=== PATIENT | female | born 1955 | race Caucasian/White ===

== ENCOUNTER 2018-12-12 17:14 | Inpatient (IN) | payer OTHER ==
[~2018-12-12] VITALS: Ht 154.9 cm; Wt 64.0 kg
[2018-12-12 17:15] VITALS: BP_SYST 163
[2018-12-12] MEDS ORDERED: NACL 0.9% 1,000 ML IV ONE (19:50)
[2018-12-12] MEDS ORDERED: METOCLOPRAMIDE HCL 10 MG/2 ML VIAL IVP ONE (20:00)
[2018-12-12] MEDS ORDERED: DIPHENHYDRAMINE INJ 50 MG/ML VIAL IVP ONE (20:00)
[2018-12-12] MEDS ORDERED: MORPHINE 4 MG/ML INJ. SYRINGE IVP ONE (20:00)
[2018-12-12 20:35] LABS: BASOPHILS % (AUTO) 0.3 % (0.0-2.0); EOSINOPHILS % (AUTO) 0.1 % (0.0-4.0); HEMATOCRIT 43.1 % (36-48); HEMOGLOBIN 14.8 g/dL (12.0-16.0); LYMPHOCYTES # (AUTO) 0.9 K/uL (1.0-5.5); LYMPHOCYTES % (AUTO) 14.7 % (20.5-51.5); MEAN CORPUSCULAR HEMOGLOBIN 30 pg (27-31); MEAN CORPUSCULAR HGB CONC 34 % (32-36); MEAN CORPUSCULAR VOLUME 87 fL (79.0-98.0); MONOCYTES # (AUTO) 0.3 K/uL (0.0-1.0); MONOCYTES % (AUTO) 5.3 % (1.7-9.3); NEUTROPHILS # (AUTO) 4.6 K/uL (1.8-7.7); NEUTROPHILS % (AUTO) 79.6 % (40.0-70.0); PLATELET COUNT (AUTO) 155 K/uL (130-430); RED BLOOD CELL COUNT(AUTO) 4.94 MIL/uL (4.2-6.2); RED CELL DISTRIBUTION WIDTH 13.9 % (9.0-15.0); WHITE BLOOD COUNT (AUTO) 5.8 K/uL (4.8-10.8)
[2018-12-12 20:58] LABS: INR 1.1 (0.8-1.2)
[2018-12-12 21:07] LABS: CALCIUM 9.7 mg/dL (8.4-11.0); CREATININE 0.93 mg/dL (0.55-1.30); POTASSIUM 4.3 mmol/L (3.5-5.1)
[2018-12-12 21:11] LABS: ALBUMIN 3.3 g/dL (3.4-4.8); TOTAL BILIRUBIN 1.7 mg/dL (0.0-1.0)
[2018-12-12] MEDS ORDERED: CYCL-10 PO (22:14)
[2018-12-12] MEDS ORDERED: VERA180T11 PO (22:14)
[2018-12-12] MEDS ORDERED: GABA-531 PO (22:14)
[2018-12-12] MEDS ORDERED: HYDR-4038 PO (22:14)
[2018-12-12] MEDS ORDERED: MECL12.584 PO (22:14)
[2018-12-12] MEDS ORDERED: METO25TA3 PO (22:14)
[2018-12-12] MEDS ORDERED: CLOP75TA32 PO (22:14)
[2018-12-12] MEDS ORDERED: SPIR50TA PO (22:14)
[2018-12-12] MEDS ORDERED: LISI40TA4 PO (22:14)
[2018-12-12] MEDS ORDERED: LIP40 PO (22:14)
[2018-12-12] MEDS ORDERED: ONDA4TAB5 PO (22:14)
[2018-12-12] MEDS ORDERED: GLU500 PO (22:14)
[2018-12-12] MEDS ORDERED: ASA81 PO (22:14)
[2018-12-12] MEDS: NACL 0.9% 1,000 ML IV SCH (23:20)
[2018-12-12] MEDS ORDERED: ALBUTEROL SULFATE 0.083% 2.5 MG/3 ML VIAL.NEB INH PRN (23:30)
[2018-12-12] MEDS ORDERED: ACETAMINOPHEN 325 MG TABLET PO PRN (23:30)
[2018-12-12] MEDS ORDERED: LABETALOL 100 MG/ 20ML VIAL IVP PRN (23:45)
[2018-12-12] MEDS ORDERED: MECLIZINE HCL 25 MG TABLET (ANITVERT) PO SCH (23:45)
[2018-12-12 23:53] VITALS: BP_SYST 153
[2018-12-13] VITALS (7 sets, daily range): BP systolic 144–172
[2018-12-13 06:05] LABS: ALBUMIN 2.7 g/dL (3.4-4.8); CALCIUM 8.9 mg/dL (8.4-11.0); CREATININE 0.77 mg/dL (0.55-1.30); POTASSIUM 3.5 mmol/L (3.5-5.1); TOTAL BILIRUBIN 1.3 mg/dL (0.0-1.0)
[2018-12-13 06:12] LABS: BASOPHILS % (AUTO) 0.4 % (0.0-2.0); EOSINOPHILS % (AUTO) 0.5 % (0.0-4.0); HEMATOCRIT 37.4 % (36-48); LYMPHOCYTES # (AUTO) 1.4 K/uL (1.0-5.5); LYMPHOCYTES % (AUTO) 26.9 % (20.5-51.5); MEAN CORPUSCULAR HEMOGLOBIN 30 pg (27-31); MEAN CORPUSCULAR HGB CONC 35 % (32-36); MEAN CORPUSCULAR VOLUME 86 fL (79.0-98.0); MONOCYTES # (AUTO) 0.4 K/uL (0.0-1.0); NEUTROPHILS # (AUTO) 3.5 K/uL (1.8-7.7); NEUTROPHILS % (AUTO) 65.2 % (40.0-70.0); PLATELET COUNT (AUTO) 136 K/uL (130-430); RED BLOOD CELL COUNT(AUTO) 4.35 MIL/uL (4.2-6.2); RED CELL DISTRIBUTION WIDTH 14.2 % (9.0-15.0); WHITE BLOOD COUNT (AUTO) 5.3 K/uL (4.8-10.8)
[2018-12-13] MEDS: ONDANSETRON HCL 4 MG/2 ML VIAL IVP PRN ×2 (06:47→21:59)
[2018-12-13] MEDS: CLOPIDOGREL BISULFATE 75 MG TABLET PO SCH (09:51)
[2018-12-13] MEDS: VERAPAMIL HCL 180 MG TABLET.SA PO SCH ×2 (09:51→21:24)
[2018-12-13] MEDS: ASPIRIN 81 MG TAB.CHEW PO SCH (09:52)
[2018-12-13] MEDS: CYCLOBENZAPRINE HCL 10 MG TABLET (FLEXERIL) PO SCH ×2 (09:53→21:17)
[2018-12-13] MEDS: GABAPENTIN 300 MG CAPSULE PO SCH ×2 (09:53→21:26)
[2018-12-13] MEDS: METOPROLOL SUCCINATE 25 MG TAB.SR.24H (TOPROL XL) PO SCH (09:54)
[2018-12-13] MEDS ORDERED: LORazepam 2 MG/ML VIAL IVP ONE (11:15)
[2018-12-13] MEDS ORDERED: *LOVENOX 1MG/KG Q12H/PHARMACY XX SCH (21:15)
[2018-12-13] MEDS: ATORVASTATIN 20 MG TABLET PO SCH (21:27)
[2018-12-13] MEDS: NACL 0.9% 1,000 ML IV SCH (21:34)
[2018-12-13] MEDS ORDERED: ENOXAPARIN SODIUM 60 MG/0.6 ML SYRINGE SUBCUT SCH (22:00)
[2018-12-14 00:14] VITALS: BP_SYST 148
[2018-12-14] MEDS: NACL 0.9% 1,000 ML IV SCH ×2 (05:20→20:33)
[2018-12-14] MEDS: ASPIRIN 81 MG TAB.CHEW PO SCH (09:06)
[2018-12-14] MEDS: VERAPAMIL HCL 180 MG TABLET.SA PO SCH ×2 (09:07→20:36)
[2018-12-14] MEDS: GABAPENTIN 300 MG CAPSULE PO SCH ×2 (09:08→20:33)
[2018-12-14] MEDS: CYCLOBENZAPRINE HCL 10 MG TABLET (FLEXERIL) PO SCH ×2 (09:08→20:35)
[2018-12-14] MEDS: CLOPIDOGREL BISULFATE 75 MG TABLET PO SCH (09:08)
[2018-12-14] MEDS: ENOXAPARIN SODIUM 60 MG/0.6 ML SYRINGE SUBCUT SCH ×2 (09:13→20:39)
[2018-12-14] MEDS: METOPROLOL SUCCINATE 25 MG TAB.SR.24H (TOPROL XL) PO SCH (09:13)
[2018-12-14 12:26] VITALS: BP_SYST 163
[2018-12-14 13:14] VITALS: BP_SYST 146
[2018-12-14 17:30] VITALS: BP_SYST 139
[2018-12-14 19:40] VITALS: BP_SYST 177
[2018-12-14] MEDS: ATORVASTATIN 20 MG TABLET PO SCH (20:35)
[2018-12-15 00:19] VITALS: BP_SYST 139
[2018-12-15 07:51] VITALS: BP_SYST 162
[2018-12-15] MEDS: METOPROLOL SUCCINATE 25 MG TAB.SR.24H (TOPROL XL) PO SCH (09:00)
[2018-12-15] MEDS: ENALAPRILAT DIHYDRATE 1.25 MG/ML VIAL IVP PRN (09:22)
[2018-12-15] MEDS: VERAPAMIL HCL 180 MG TABLET.SA PO SCH ×2 (09:25→21:38)
[2018-12-15] MEDS: CLOPIDOGREL BISULFATE 75 MG TABLET PO SCH (09:26)
[2018-12-15] MEDS: ASPIRIN 81 MG TAB.CHEW PO SCH (09:26)
[2018-12-15] MEDS: CYCLOBENZAPRINE HCL 10 MG TABLET (FLEXERIL) PO SCH ×2 (09:26→21:38)
[2018-12-15] MEDS: GABAPENTIN 300 MG CAPSULE PO SCH ×2 (09:27→21:00)
[2018-12-15] MEDS: ENOXAPARIN SODIUM 60 MG/0.6 ML SYRINGE SUBCUT SCH ×2 (09:32→21:43)
[2018-12-15] MEDS: INSULIN REGULAR, HUMAN 100 UNITS/ML, 10 ML VIAL (humuLIN R) SUBCUT PRN ×2 (11:55→12:35)
[2018-12-15 12:00] VITALS: BP_SYST 148
[2018-12-15 15:56] VITALS: BP_SYST 151
[2018-12-15] MEDS: NACL 0.9% 1,000 ML IV SCH (16:29)
[2018-12-15] MEDS: ONDANSETRON HCL 4 MG/2 ML VIAL IVP PRN (16:51)
[2018-12-15 19:40] VITALS: BP_SYST 160
[2018-12-15] MEDS: ATORVASTATIN 20 MG TABLET PO SCH (21:39)
[2018-12-16 00:34] VITALS: BP_SYST 156
[2018-12-16 08:30] VITALS: BP_SYST 136; BP_SYST 162
[2018-12-16] MEDS: VERAPAMIL HCL 180 MG TABLET.SA PO SCH ×2 (08:34→22:20)
[2018-12-16] MEDS: CLOPIDOGREL BISULFATE 75 MG TABLET PO SCH (08:34)
[2018-12-16] MEDS: GABAPENTIN 300 MG CAPSULE PO SCH ×2 (08:34→22:15)
[2018-12-16] MEDS: CYCLOBENZAPRINE HCL 10 MG TABLET (FLEXERIL) PO SCH ×2 (08:35→22:15)
[2018-12-16] MEDS: FLUoxetine HCL 20 MG CAPSULE (PROzac) PO SCH (08:35)
[2018-12-16] MEDS: METOPROLOL SUCCINATE 25 MG TAB.SR.24H (TOPROL XL) PO SCH (08:35)
[2018-12-16] MEDS: ASPIRIN 81 MG TAB.CHEW PO SCH (08:35)
[2018-12-16] MEDS: ENOXAPARIN SODIUM 60 MG/0.6 ML SYRINGE SUBCUT SCH ×2 (08:37→22:25)
[2018-12-16 12:27] VITALS: BP_SYST 142
[2018-12-16] MEDS: NACL 0.9% 1,000 ML IV SCH (12:33)
[2018-12-16] MEDS ORDERED: LISINOPRIL 20 MG TABLET PO ONE (12:45)
[2018-12-16] MEDS: ONDANSETRON HCL 4 MG/2 ML VIAL IVP PRN (12:52)
[2018-12-16 15:48] VITALS: BP_SYST 142
[2018-12-16] MEDS: ENALAPRILAT DIHYDRATE 1.25 MG/ML VIAL IVP PRN ×2 (16:38→23:39)
[2018-12-16 17:00] VITALS: BP_SYST 160
[2018-12-16 20:00] VITALS: BP_SYST 165
[2018-12-16] MEDS: ATORVASTATIN 20 MG TABLET PO SCH (22:16)
[2018-12-17] VITALS (7 sets, daily range): BP systolic 136–197
[2018-12-17] MEDS: NACL 0.9% 1,000 ML IV SCH (06:30)
[2018-12-17] MEDS: ENALAPRILAT DIHYDRATE 1.25 MG/ML VIAL IVP PRN ×3 (06:40→22:01)
[2018-12-17] MEDS: ASPIRIN 81 MG TAB.CHEW PO SCH (09:17)
[2018-12-17] MEDS: VERAPAMIL HCL 180 MG TABLET.SA PO SCH ×2 (09:22→21:56)
[2018-12-17] MEDS: CLOPIDOGREL BISULFATE 75 MG TABLET PO SCH (09:23)
[2018-12-17] MEDS: GABAPENTIN 300 MG CAPSULE PO SCH ×2 (09:24→21:56)
[2018-12-17] MEDS: FLUoxetine HCL 20 MG CAPSULE (PROzac) PO SCH (09:25)
[2018-12-17] MEDS: CYCLOBENZAPRINE HCL 10 MG TABLET (FLEXERIL) PO SCH ×2 (09:27→21:55)
[2018-12-17] MEDS: LISINOPRIL 20 MG TABLET PO SCH (09:28)
[2018-12-17] MEDS: METOPROLOL SUCCINATE 25 MG TAB.SR.24H (TOPROL XL) PO SCH (09:29)
[2018-12-17] MEDS: ENOXAPARIN SODIUM 60 MG/0.6 ML SYRINGE SUBCUT SCH ×2 (10:05→22:06)
[2018-12-17] MEDS: ONDANSETRON HCL 4 MG/2 ML VIAL IVP PRN (11:34)
[2018-12-17] MEDS: ATORVASTATIN 20 MG TABLET PO SCH (21:55)
[2018-12-18] VITALS (7 sets, daily range): BP systolic 143–186
[2018-12-18] MEDS: NACL 0.9% 1,000 ML IV SCH (03:03)
[2018-12-18] MEDS: GABAPENTIN 300 MG CAPSULE PO SCH ×2 (09:29→21:48)
[2018-12-18] MEDS: FLUoxetine HCL 20 MG CAPSULE (PROzac) PO SCH (09:30)
[2018-12-18] MEDS ORDERED: amLODIPine BESYLATE 5 MG TABLET PO ONE (09:30)
[2018-12-18] MEDS: LISINOPRIL 20 MG TABLET PO SCH (09:30)
[2018-12-18] MEDS: METOPROLOL SUCCINATE 25 MG TAB.SR.24H (TOPROL XL) PO SCH (09:30)
[2018-12-18] MEDS: ASPIRIN 81 MG TAB.CHEW PO SCH (09:30)
[2018-12-18] MEDS: CLOPIDOGREL BISULFATE 75 MG TABLET PO SCH (09:31)
[2018-12-18] MEDS: ENOXAPARIN SODIUM 60 MG/0.6 ML SYRINGE SUBCUT SCH ×2 (09:31→21:51)
[2018-12-18] MEDS: VERAPAMIL HCL 180 MG TABLET.SA PO SCH ×2 (09:31→21:48)
[2018-12-18] MEDS: CYCLOBENZAPRINE HCL 10 MG TABLET (FLEXERIL) PO SCH ×2 (09:32→21:48)
[2018-12-18] MEDS: ATORVASTATIN 20 MG TABLET PO SCH (21:47)
[2018-12-19 00:38] VITALS: BP_SYST 152
[2018-12-19 08:10] VITALS: BP_SYST 135
[2018-12-19] MEDS: ONDANSETRON HCL 4 MG/2 ML VIAL IVP PRN ×2 (08:16→19:21)
[2018-12-19] MEDS: CLOPIDOGREL BISULFATE 75 MG TABLET PO SCH (09:00)
[2018-12-19] MEDS: FLUoxetine HCL 20 MG CAPSULE (PROzac) PO SCH (09:00)
[2018-12-19] MEDS: METOPROLOL SUCCINATE 25 MG TAB.SR.24H (TOPROL XL) PO SCH (09:00)
[2018-12-19] MEDS: amLODIPine BESYLATE 5 MG TABLET PO SCH (09:00)
[2018-12-19] MEDS: VERAPAMIL HCL 180 MG TABLET.SA PO SCH ×2 (09:00→21:04)
[2018-12-19] MEDS: LISINOPRIL 20 MG TABLET PO SCH (09:00)
[2018-12-19] MEDS: GABAPENTIN 300 MG CAPSULE PO SCH ×2 (09:00→21:04)
[2018-12-19] MEDS: ASPIRIN 81 MG TAB.CHEW PO SCH (09:00)
[2018-12-19] MEDS: CYCLOBENZAPRINE HCL 10 MG TABLET (FLEXERIL) PO SCH ×2 (09:00→21:01)
[2018-12-19] MEDS: ENOXAPARIN SODIUM 60 MG/0.6 ML SYRINGE SUBCUT SCH ×2 (09:56→21:08)
[2018-12-19 12:45] VITALS: BP_SYST 129
[2018-12-19 16:30] VITALS: BP_SYST 123
[2018-12-19 17:53] VITALS: BP_SYST 123
[2018-12-19 20:30] VITALS: BP_SYST 168
[2018-12-19] MEDS: ATORVASTATIN 20 MG TABLET PO SCH (21:01)
[2018-12-20 00:10] VITALS: BP_SYST 160
[2018-12-20 08:30] VITALS: BP_SYST 149
[2018-12-20] MEDS: VERAPAMIL HCL 180 MG TABLET.SA PO SCH ×3 (09:00→21:31)
[2018-12-20] MEDS: METOPROLOL SUCCINATE 25 MG TAB.SR.24H (TOPROL XL) PO SCH (09:00)
[2018-12-20] MEDS: ENOXAPARIN SODIUM 60 MG/0.6 ML SYRINGE SUBCUT SCH (09:03)
[2018-12-20] MEDS: GABAPENTIN 300 MG CAPSULE PO SCH ×2 (09:04→21:30)
[2018-12-20] MEDS: CYCLOBENZAPRINE HCL 10 MG TABLET (FLEXERIL) PO SCH ×2 (09:10→21:30)
[2018-12-20] MEDS: amLODIPine BESYLATE 5 MG TABLET PO SCH (09:10)
[2018-12-20] MEDS: FLUoxetine HCL 20 MG CAPSULE (PROzac) PO SCH (09:10)
[2018-12-20] MEDS: LISINOPRIL 20 MG TABLET PO SCH (09:11)
[2018-12-20] MEDS: ASPIRIN 81 MG TAB.CHEW PO SCH (09:12)
[2018-12-20] MEDS ORDERED: HEPARIN SODIUM,PORCINE 3000 UNITS/0.6 ML BOLUS IVP PRN (10:15)
[2018-12-20] MEDS ORDERED: HEPARIN SODIUM,PORCINE 2000 UNITS/0.4 ML BOLUS IVP PRN (10:15)
[2018-12-20 10:50] LABS: BASOPHILS % (AUTO) 0.5 % (0.0-2.0); EOSINOPHILS % (AUTO) 0.6 % (0.0-4.0); HEMATOCRIT 37.5 % (36-48); HEMOGLOBIN 13.3 g/dL (12.0-16.0); LYMPHOCYTES # (AUTO) 1.1 K/uL (1.0-5.5); MEAN CORPUSCULAR HEMOGLOBIN 30 pg (27-31); MEAN CORPUSCULAR HGB CONC 35 % (32-36); MEAN CORPUSCULAR VOLUME 86 fL (79.0-98.0); MONOCYTES # (AUTO) 0.4 K/uL (0.0-1.0); MONOCYTES % (AUTO) 7.6 % (1.7-9.3); NEUTROPHILS # (AUTO) 3.4 K/uL (1.8-7.7); NEUTROPHILS % (AUTO) 68.3 % (40.0-70.0); PLATELET COUNT (AUTO) 113 K/uL (130-430); RED BLOOD CELL COUNT(AUTO) 4.39 MIL/uL (4.2-6.2); RED CELL DISTRIBUTION WIDTH 14.6 % (9.0-15.0); WHITE BLOOD COUNT (AUTO) 4.9 K/uL (4.8-10.8)
[2018-12-20 11:28] VITALS: BP_SYST 140
[2018-12-20] MEDS ORDERED: HEPARIN SODIUM,PORCINE 5000 UNITS/ML VIAL SUBCUT ONE (12:00)
[2018-12-20] MEDS ORDERED: HEPARIN SODIUM,PORCINE 5000 UNITS/ML VIAL IV ONE (12:15)
[2018-12-20] MEDS: HEPARIN 25,000 UNITS/D5W 250ML 250 ML IV PRN ×2 (12:27→21:46)
[2018-12-20 16:30] VITALS: BP_SYST 157
[2018-12-20] MEDS: ONDANSETRON HCL 4 MG/2 ML VIAL IVP PRN (19:45)
[2018-12-20 20:00] VITALS: BP_SYST 167
[2018-12-20] MEDS: ATORVASTATIN 20 MG TABLET PO SCH (21:30)
[2018-12-21 01:42] VITALS: BP_SYST 153
[2018-12-21] MEDS: ONDANSETRON HCL 4 MG/2 ML VIAL IVP PRN (03:15)
[2018-12-21 07:45] VITALS: BP_SYST 135
[2018-12-21] MEDS: GABAPENTIN 300 MG CAPSULE PO SCH ×2 (09:11→20:36)
[2018-12-21] MEDS: FLUoxetine HCL 20 MG CAPSULE (PROzac) PO SCH (09:12)
[2018-12-21] MEDS: ASPIRIN 81 MG TAB.CHEW PO SCH (09:12)
[2018-12-21] MEDS: CYCLOBENZAPRINE HCL 10 MG TABLET (FLEXERIL) PO SCH ×2 (09:12→20:44)
[2018-12-21] MEDS: amLODIPine BESYLATE 5 MG TABLET PO SCH (09:13)
[2018-12-21] MEDS: LISINOPRIL 20 MG TABLET PO SCH (09:13)
[2018-12-21] MEDS: METOPROLOL SUCCINATE 25 MG TAB.SR.24H (TOPROL XL) PO SCH (09:13)
[2018-12-21] MEDS: VERAPAMIL HCL 180 MG TABLET.SA PO SCH ×2 (09:14→20:35)
[2018-12-21] MEDS: HEPARIN 25,000 UNITS/D5W 250ML 250 ML IV PRN ×2 (10:10→17:23)
[2018-12-21 12:38] VITALS: BP_SYST 138
[2018-12-21 16:08] VITALS: BP_SYST 123
[2018-12-21] MEDS: INSULIN REGULAR, HUMAN 100 UNITS/ML, 10 ML VIAL (humuLIN R) SUBCUT PRN ×3 (16:20→20:47)
[2018-12-21 20:00] VITALS: BP_SYST 140
[2018-12-21] MEDS: ATORVASTATIN 20 MG TABLET PO SCH (20:36)
[2018-12-21] MEDS: DOCUSATE SODIUM 100 MG CAPSULE PO SCH (20:36)
[2018-12-22] VITALS: BP_SYST 121
[2018-12-22 07:18] LABS: BASOPHILS % (AUTO) 0.3 % (0.0-2.0); EOSINOPHILS % (AUTO) 0.7 % (0.0-4.0); HEMATOCRIT 39.3 % (36-48); LYMPHOCYTES # (AUTO) 1.2 K/uL (1.0-5.5); LYMPHOCYTES % (AUTO) 19.9 % (20.5-51.5); MEAN CORPUSCULAR HEMOGLOBIN 30 pg (27-31); MEAN CORPUSCULAR HGB CONC 36 % (32-36); MEAN CORPUSCULAR VOLUME 86 fL (79.0-98.0); MONOCYTES # (AUTO) 0.5 K/uL (0.0-1.0); MONOCYTES % (AUTO) 7.5 % (1.7-9.3); NEUTROPHILS # (AUTO) 4.4 K/uL (1.8-7.7); NEUTROPHILS % (AUTO) 71.6 % (40.0-70.0); PLATELET COUNT (AUTO) 124 K/uL (130-430); RED BLOOD CELL COUNT(AUTO) 4.59 MIL/uL (4.2-6.2); RED CELL DISTRIBUTION WIDTH 14.6 % (9.0-15.0); WHITE BLOOD COUNT (AUTO) 6.1 K/uL (4.8-10.8)
[2018-12-22 07:47] LABS: CALCIUM 9.6 mg/dL (8.4-11.0); CREATININE 0.7 mg/dL (0.55-1.30); TOTAL BILIRUBIN 1.4 mg/dL (0.0-1.0)
[2018-12-22] MEDS: METOPROLOL SUCCINATE 25 MG TAB.SR.24H (TOPROL XL) PO SCH (09:00)
[2018-12-22 09:15] VITALS: BP_SYST 154
[2018-12-22] MEDS: FLUoxetine HCL 20 MG CAPSULE (PROzac) PO SCH (09:30)
[2018-12-22] MEDS: GABAPENTIN 300 MG CAPSULE PO SCH ×2 (09:30→22:00)
[2018-12-22] MEDS: DOCUSATE SODIUM 100 MG CAPSULE PO SCH ×2 (09:30→22:00)
[2018-12-22] MEDS: CYCLOBENZAPRINE HCL 10 MG TABLET (FLEXERIL) PO SCH ×2 (09:30→22:02)
[2018-12-22] MEDS: ASPIRIN 81 MG TAB.CHEW PO SCH (09:30)
[2018-12-22] MEDS: amLODIPine BESYLATE 5 MG TABLET PO SCH (09:31)
[2018-12-22] MEDS: LISINOPRIL 20 MG TABLET PO SCH (09:31)
[2018-12-22] MEDS: VERAPAMIL HCL 180 MG TABLET.SA PO SCH ×2 (09:32→22:00)
[2018-12-22 11:56] VITALS: BP_SYST 133
[2018-12-22] MEDS ORDERED: COMMUNICATION ORDER XX ONE (15:30)
[2018-12-22] MEDS: 0.45% NACL 1,000 ML IV SCH (15:30)
[2018-12-22 16:53] VITALS: BP_SYST 137
[2018-12-22 17:24] LABS: BLOOD, URINE NEGATIVE (NEGATIVE); GLUCOSE,URINE TRACE (NEGATIVE); KETONES,URINE TRACE (NEGATIVE); LEUKOCYTE ESTERASE ,URINE 1+ (NEGATIVE); NITRITE, URINE NEGATIVE (NEGATIVE); PH,URINE 5.5 (5.0-8.0); PROTEIN URINE 2+ (NEGATIVE)
[2018-12-22 17:35] LABS: BILIRUBIN,URINE NEGATIVE (NEGATIVE); CLARITY/URINE HAZY (CLEAR); COLOR,URINE AMBER (YELLOW)
[2018-12-22] MEDS: INSULIN REGULAR, HUMAN 100 UNITS/ML, 10 ML VIAL (humuLIN R) SUBCUT PRN (17:35)
[2018-12-22 17:36] LABS: RBC,URINE 0-3 /HPF (0-3)
[2018-12-22 17:37] LABS: BACTERIA,URINE FEW /HPF (None Seen); MUCUS,URINE 1+ /LPF (None Seen)
[2018-12-22 20:50] VITALS: BP_SYST 141
[2018-12-22] MEDS: ATORVASTATIN 20 MG TABLET PO SCH (22:00)
[2018-12-22 23:25] VITALS: BP_SYST 149
[2018-12-23] MEDS: 0.45% NACL 1,000 ML IV SCH (00:45)
[2018-12-23 01:31] VITALS: BP_SYST 138
[2018-12-23] MEDS: LISINOPRIL 20 MG TABLET PO SCH (09:00)
[2018-12-23] MEDS: ASPIRIN 81 MG TAB.CHEW PO SCH (09:00)
[2018-12-23] MEDS: METOPROLOL SUCCINATE 25 MG TAB.SR.24H (TOPROL XL) PO SCH (09:00)
[2018-12-23] MEDS: CYCLOBENZAPRINE HCL 10 MG TABLET (FLEXERIL) PO SCH ×2 (09:00→23:29)
[2018-12-23] MEDS: VERAPAMIL HCL 180 MG TABLET.SA PO SCH ×2 (09:00→23:28)
[2018-12-23] MEDS: GABAPENTIN 300 MG CAPSULE PO SCH ×2 (09:00→23:27)
[2018-12-23] MEDS: DOCUSATE SODIUM 100 MG CAPSULE PO SCH ×2 (09:00→23:29)
[2018-12-23] MEDS: amLODIPine BESYLATE 5 MG TABLET PO SCH (09:00)
[2018-12-23] MEDS: FLUoxetine HCL 20 MG CAPSULE (PROzac) PO SCH (09:00)
[2018-12-23 20:00] VITALS: BP_SYST 118; BP_SYST 159
[2018-12-23] MEDS: ATORVASTATIN 20 MG TABLET PO SCH (23:29)
[2018-12-23] MEDS ORDERED: ACETAMINOPHEN 325 MG TABLET PO PRN (23:45)
[2018-12-24 00:18] VITALS: BP_SYST 168
[2018-12-24 04:00] VITALS: BP_SYST 128
[2018-12-24 08:05] VITALS: BP_SYST 145
[2018-12-24] MEDS: CYCLOBENZAPRINE HCL 10 MG TABLET (FLEXERIL) PO SCH ×2 (08:51→22:07)
[2018-12-24] MEDS: DOCUSATE SODIUM 100 MG CAPSULE PO SCH ×2 (08:51→22:06)
[2018-12-24] MEDS: GABAPENTIN 300 MG CAPSULE PO SCH ×2 (08:51→22:07)
[2018-12-24] MEDS: VERAPAMIL HCL 180 MG TABLET.SA PO SCH ×2 (08:52→22:07)
[2018-12-24] MEDS: ASPIRIN 81 MG TAB.CHEW PO SCH (09:48)
[2018-12-24] MEDS: FLUoxetine HCL 20 MG CAPSULE (PROzac) PO SCH (09:48)
[2018-12-24] MEDS: METOPROLOL SUCCINATE 25 MG TAB.SR.24H (TOPROL XL) PO SCH (09:49)
[2018-12-24] MEDS: amLODIPine BESYLATE 5 MG TABLET PO SCH (09:50)
[2018-12-24] MEDS: LISINOPRIL 20 MG TABLET PO SCH (09:50)
[2018-12-24 12:00] VITALS: BP_SYST 143
[2018-12-24 16:16] VITALS: BP_SYST 154
[2018-12-24 20:00] VITALS: BP_SYST 159
[2018-12-24] MEDS: INSULIN REGULAR, HUMAN 100 UNITS/ML, 10 ML VIAL (humuLIN R) SUBCUT PRN (22:06)
[2018-12-24] MEDS: ATORVASTATIN 20 MG TABLET PO SCH (22:07)
[2018-12-25] VITALS: BP_SYST 150
[2018-12-25] MEDS: INSULIN REGULAR, HUMAN 100 UNITS/ML, 10 ML VIAL (humuLIN R) SUBCUT PRN ×4 (06:24→21:14)
[2018-12-25 07:57] VITALS: BP_SYST 124
[2018-12-25] MEDS: METOPROLOL SUCCINATE 25 MG TAB.SR.24H (TOPROL XL) PO SCH (09:00)
[2018-12-25 09:10] VITALS: BP_SYST 124
[2018-12-25] MEDS: DOCUSATE SODIUM 100 MG CAPSULE PO SCH ×2 (09:12→21:09)
[2018-12-25] MEDS: CYCLOBENZAPRINE HCL 10 MG TABLET (FLEXERIL) PO SCH ×2 (09:12→21:09)
[2018-12-25] MEDS: amLODIPine BESYLATE 5 MG TABLET PO SCH (09:13)
[2018-12-25] MEDS: ASPIRIN 81 MG TAB.CHEW PO SCH (09:13)
[2018-12-25] MEDS: GABAPENTIN 300 MG CAPSULE PO SCH ×2 (09:13→21:08)
[2018-12-25] MEDS: FLUoxetine HCL 20 MG CAPSULE (PROzac) PO SCH (09:13)
[2018-12-25] MEDS: VERAPAMIL HCL 180 MG TABLET.SA PO SCH ×2 (09:13→21:09)
[2018-12-25] MEDS: LISINOPRIL 20 MG TABLET PO SCH (09:14)
[2018-12-25 12:31] VITALS: BP_SYST 112
[2018-12-25 16:03] VITALS: BP_SYST 136
[2018-12-25 20:00] VITALS: BP_SYST 136
[2018-12-25] MEDS: ATORVASTATIN 20 MG TABLET PO SCH (21:09)
[2018-12-26 00:32] VITALS: BP_SYST 136
[2018-12-26 05:44] LABS: BASOPHILS % (AUTO) 0.4 % (0.0-2.0); EOSINOPHILS # (AUTO) 0.1 K/uL (0.0-0.4); EOSINOPHILS % (AUTO) 1.9 % (0.0-4.0); HEMATOCRIT 37.2 % (36-48); LYMPHOCYTES # (AUTO) 1.2 K/uL (1.0-5.5); LYMPHOCYTES % (AUTO) 21.1 % (20.5-51.5); MEAN CORPUSCULAR HEMOGLOBIN 31 pg (27-31); MEAN CORPUSCULAR HGB CONC 35 % (32-36); MEAN CORPUSCULAR VOLUME 87 fL (79.0-98.0); MONOCYTES # (AUTO) 0.5 K/uL (0.0-1.0); MONOCYTES % (AUTO) 9.1 % (1.7-9.3); NEUTROPHILS # (AUTO) 3.8 K/uL (1.8-7.7); NEUTROPHILS % (AUTO) 67.5 % (40.0-70.0); PLATELET COUNT (AUTO) 112 K/uL (130-430); RED BLOOD CELL COUNT(AUTO) 4.28 MIL/uL (4.2-6.2); RED CELL DISTRIBUTION WIDTH 15.1 % (9.0-15.0); WHITE BLOOD COUNT (AUTO) 5.6 K/uL (4.8-10.8)
[2018-12-26 06:08] LABS: ALBUMIN 2.5 g/dL (3.4-4.8); CREATININE 0.63 mg/dL (0.55-1.30); POTASSIUM 3.5 mmol/L (3.5-5.1); TOTAL BILIRUBIN 0.9 mg/dL (0.0-1.0)
[2018-12-26] MEDS: INSULIN REGULAR, HUMAN 100 UNITS/ML, 10 ML VIAL (humuLIN R) SUBCUT PRN ×2 (06:13→17:13)
[2018-12-26 07:54] VITALS: BP_SYST 151
[2018-12-26] MEDS: METOPROLOL SUCCINATE 25 MG TAB.SR.24H (TOPROL XL) PO SCH (09:00)
[2018-12-26] MEDS: FLUoxetine HCL 20 MG CAPSULE (PROzac) PO SCH (09:00)
[2018-12-26] MEDS: VERAPAMIL HCL 180 MG TABLET.SA PO SCH ×2 (09:00→21:00)
[2018-12-26] MEDS: amLODIPine BESYLATE 5 MG TABLET PO SCH (09:00)
[2018-12-26] MEDS: LISINOPRIL 20 MG TABLET PO SCH (09:00)
[2018-12-26] MEDS: CYCLOBENZAPRINE HCL 10 MG TABLET (FLEXERIL) PO SCH ×2 (09:00→21:00)
[2018-12-26] MEDS: ASPIRIN 81 MG TAB.CHEW PO SCH (09:00)
[2018-12-26] MEDS: DOCUSATE SODIUM 100 MG CAPSULE PO SCH ×2 (09:00→21:00)
[2018-12-26] MEDS: GABAPENTIN 300 MG CAPSULE PO SCH ×2 (09:00→21:00)
[2018-12-26 14:52] VITALS: BP_SYST 134
[2018-12-26 16:07] VITALS: BP_SYST 156
[2018-12-26 16:38] VITALS: BP_SYST 148
[2018-12-26 20:00] VITALS: BP_SYST 152
[2018-12-26] MEDS: ATORVASTATIN 20 MG TABLET PO SCH (21:00)
[2018-12-27] MEDS: INSULIN REGULAR, HUMAN 100 UNITS/ML, 10 ML VIAL (humuLIN R) SUBCUT PRN ×2 (06:14→11:41)
[2018-12-27 08:00] VITALS: BP_SYST 149
[2018-12-27] MEDS: DOCUSATE SODIUM 100 MG CAPSULE PO SCH (09:21)
[2018-12-27] MEDS: VERAPAMIL HCL 180 MG TABLET.SA PO SCH (09:22)
[2018-12-27] MEDS: ASPIRIN 81 MG TAB.CHEW PO SCH (09:22)
[2018-12-27] MEDS: LISINOPRIL 20 MG TABLET PO SCH (09:22)
[2018-12-27] MEDS: amLODIPine BESYLATE 5 MG TABLET PO SCH (09:22)
[2018-12-27] MEDS: GABAPENTIN 300 MG CAPSULE PO SCH (09:22)
[2018-12-27] MEDS: METOPROLOL SUCCINATE 25 MG TAB.SR.24H (TOPROL XL) PO SCH (09:23)
[2018-12-27] MEDS: FLUoxetine HCL 20 MG CAPSULE (PROzac) PO SCH (09:23)
[2018-12-27] MEDS: CYCLOBENZAPRINE HCL 10 MG TABLET (FLEXERIL) PO SCH (09:23)
[2018-12-27 12:00] VITALS: BP_SYST 113
[2018-12-27 17:17] VITALS: BP_SYST 147
== END 2018-12-27 17:26 | DRG 65 ==
LOC: SED 17:14 → STU 22:29 → SMU 12-18 10:00 → UNDODISIN 12-23 07:40
PROVIDERS: ADMIT Internal Medicine Hospice and Palliative Medicine; ATTEND Internal Medicine Hospice and Palliative Medicine
DX: I63.9 Cerebral infarction, unspecified (principal); Q21.1 Atrial septal defect; F33.2 Major depressive disorder, recurrent severe without psychotic features; I82.431 Acute embolism and thrombosis of right popliteal vein; I82.441 Acute embolism and thrombosis of right tibial vein; I10 Essential (primary) hypertension; E78.5 Hyperlipidemia, unspecified; M19.90 Unspecified osteoarthritis, unspecified site; H57.12 Ocular pain, left eye; E11.9 Type 2 diabetes mellitus without complications; D69.6 Thrombocytopenia, unspecified; R16.1 Splenomegaly, not elsewhere classified; K76.0 Fatty (change of) liver, not elsewhere classified; Z95.828 Presence of other vascular implants and grafts; Z87.891 Personal history of nicotine dependence; Z79.02 Long term (current) use of antithrombotics/antiplatelets; Z79.82 Long term (current) use of aspirin; Z82.49 Family history of ischemic heart disease and other diseases of the circulatory system; Z79.899 Other long term (current) drug therapy; Z88.1 Allergy status to other antibiotic agents; Z85.038 Personal history of other malignant neoplasm of large intestine
CPT/HCPCS: 36415; 70450-TC; 70551; 71045; 73090; 80053; 80061; 81000-TC; 82962; 83036; 83605; 83690-TC; 85025; 85610-TC; 85730-TC; 87040-TC; 87086; 93306; 93880; 93970; 96361; 96374; 96375; 97116-GP; 97530-GP; 99285; G0378; J1200; J1644; J1650; J1815; J2060; J2270; J2405; J2765; J7030; J8597

== ENCOUNTER 2023-02-28 19:17 | Inpatient (IN) | payer OTHER, MEDICAID ==
[~2023-02-28] VITALS: Ht 157.5 cm; Wt 47.6 kg
[~2023-02-28 19:17] MED LIST: ASA81 PO; GABA-531 PO; GLU500 PO; HYDR-4038 PO; LIP40 PO; LISI40TA13 PO; MECL-225 PO; METO25TA3 PO; ONDA4TAB5 PO; VERA180T59 PO
[2023-02-28 19:34] VITALS: BP_SYST 97; PULSE 79; RESP 19; TEMP 97.9; O2SAT 95
[2023-02-28 21:31] LABS: ANION GAP 8 (5-15); CALCIUM 10.5 mg/dL (8.4-11.0); CARBON DIOXIDE 27 mmol/L (23-29); CHLORIDE 107 mmol/L (98-107); CREATININE 1.24 mg/dL (0.55-1.30); GFR AFRICAN AMERICAN 55 mL/min (>90); GLUCOSE 212 mg/dL (74-106); POTASSIUM 4.7 mmol/L (3.5-5.1); SODIUM SERUM 142 mmol/L (136-145); UREA NITROGEN, BLOOD 35 mg/dL (8-21)
[2023-02-28 21:32] LABS: BASOPHILS % (AUTO) 0.3 % (0.0-2.0); EOSINOPHILS # (AUTO) 0.1 K/uL (0.0-0.4); EOSINOPHILS % (AUTO) 1.1 % (0.0-4.0); GFR NON AFRICAN-AMERICAN 46 mL/min (>90); HEMATOCRIT 29.8 % (36-48); HEMOGLOBIN 10.1 g/dL (12.0-16.0); LYMPHOCYTES # (AUTO) 1.2 K/uL (1.0-5.5); LYMPHOCYTES % (AUTO) 17.1 % (20.5-51.5); MEAN CORPUSCULAR HEMOGLOBIN 29 pg (27-31); MEAN CORPUSCULAR HGB CONC 34 % (32-36); MEAN CORPUSCULAR VOLUME 84 fL (79.0-98.0); MONOCYTES # (AUTO) 0.4 K/uL (0.0-1.0); MONOCYTES % (AUTO) 6.4 % (1.7-9.3); NEUTROPHILS # (AUTO) 5.2 K/uL (1.8-7.7); NEUTROPHILS % (AUTO) 75.1 % (40.0-70.0); PLATELET COUNT (AUTO) 247 K/uL (130-430); RED BLOOD CELL COUNT(AUTO) 3.55 MIL/uL (4.2-6.2); RED CELL DISTRIBUTION WIDTH 14.9 % (9.0-15.0); WHITE BLOOD COUNT (AUTO) 6.9 K/uL (4.8-10.8)
[2023-02-28 22:34] LABS: BILIRUBIN,URINE NEGATIVE (NEGATIVE); BLOOD, URINE NEGATIVE (NEGATIVE); COLOR,URINE YELLOW (YELLOW); GLUCOSE,URINE NEGATIVE (NEGATIVE); KETONES,URINE NEGATIVE (NEGATIVE); LEUKOCYTE ESTERASE ,URINE 2+ (NEGATIVE); NITRITE, URINE NEGATIVE (NEGATIVE); PH,URINE 5.5 (5.0-8.0); PROTEIN URINE NEGATIVE (NEGATIVE); UROBILINOGEN,URINE 0.2 (0.2-1.0)
[2023-02-28 22:51] LABS: CLARITY/URINE CLOUDY (CLEAR)
[2023-02-28 23:00] LABS: BACTERIA,URINE MANY /HPF (None Seen); MUCUS,URINE None Seen /LPF (None Seen); RBC,URINE 0-3 /HPF (0-3); URIC ACID CRYSTALS,URINE 0-10 /HPF (None Seen); URINE AMORPHOUS URATE 2+ /HPF (None Seen)
[2023-03-01] MEDS: cefTRIAXone 1 GM IVPB PREMIX 50 ML IV ONE (00:56)
[2023-03-01] MEDS: NACL 0.9% 1,000 ML IV SCH ×2 (01:15→11:24)
[2023-03-01] MEDS ORDERED: INSULIN REGULAR, HUMAN 100 UNITS/ML, 3 ML VIAL (humuLIN R) SUBCUT PRN (01:15)
[2023-03-01] MEDS ORDERED: ATOR-1 PO (07:42)
[2023-03-01] MEDS ORDERED: NIFE-76 PO (07:42)
[2023-03-01] MEDS ORDERED: CARV6.2554 PO (07:42)
[2023-03-01] MEDS ORDERED: OLAN5TAB39 PO (07:42)
[2023-03-01] MEDS ORDERED: MEMA5TAB42 PO (07:42)
[2023-03-01] MEDS ORDERED: ESCI-6 PO (07:42)
[2023-03-01] MEDS ORDERED: HYDR2VIA IM (08:08)
[2023-03-01] MEDS ORDERED: ZINC220T4 PO (08:08)
[2023-03-01] MEDS ORDERED: TRAM50TA2 PO (08:08)
[2023-03-01] MEDS ORDERED: OLAN5TAB3 PO (08:08)
[2023-03-01] MEDS ORDERED: AMIN30LI31 PO (08:08)
[2023-03-01] MEDS ORDERED: COLL15OI3 TP (08:08)
[2023-03-01] MEDS ORDERED: ASCO500T20 PO (08:08)
[2023-03-01] MEDS ORDERED: ACET325T PO (08:08)
[2023-03-01] MEDS ORDERED: MOM PO (08:08)
[2023-03-01] MEDS ORDERED: MUPI15CR12 TP (08:08)
[2023-03-01] MEDS ORDERED: MULT-1117 PO (08:08)
[2023-03-01] MEDS ORDERED: SENN8.6T19 PO (08:08)
[2023-03-01] MEDS ORDERED: NALOXONE HCL 0.4 MG/ML AMP (NARCAN) IVP PRN ×2 (08:30)
[2023-03-01] MEDS ORDERED: ONDANSETRON HCL 4 MG/2 ML VIAL IVP PRN (08:30)
[2023-03-01] MEDS ORDERED: LORazepam 2 MG/ML VIAL IVP PRN (08:30)
[2023-03-01] MEDS ORDERED: DEXTROSE 50% JECT 50 ML DISP.SYRIN IVP PRN (08:30)
[2023-03-01] MEDS ORDERED: INSULIN LISPRO SLIDING SCALE 100 UNITS/ML, 3 ML VIAL (humaLOG) SUBCUT PRN (08:30)
[2023-03-01] MEDS ORDERED: ZOLPIDEM TARTRATE 5 MG TABLET PO PRN (08:30)
[2023-03-01] MEDS ORDERED: ACETAMINOPHEN 325 MG TABLET PO PRN ×3 (08:30→09:30)
[2023-03-01] MEDS ORDERED: MUPIROCIN 2% TOPICAL OINTMENT 22 GM NS PRN (08:30)
[2023-03-01] MEDS ORDERED: MORPHINE 2 MG/ML INJ. SYRINGE IVP PRN ×2 (08:30)
[2023-03-01] MEDS ORDERED: MAGNESIUM SULFATE 50 ML IV PRN (08:30)
[2023-03-01] MEDS ORDERED: POTASSIUM CHLORIDE 20 MEQ TABLET.ER PO PRN (08:30)
[2023-03-01] MEDS: CARVEDILOL 6.25 MG TABLET (COREG) PO SCH (09:00)
[2023-03-01] MEDS ORDERED: ESCITALOPRAM OXALATE 10 MG TABLET PO SCH (09:00)
[2023-03-01 10:04] VITALS: BP_SYST 137; PULSE 73; RESP 20; TEMP 97.2
[2023-03-01 12:00] VITALS: BP_SYST 137; PULSE 70; RESP 20; TEMP 98.2; O2SAT 100
[2023-03-01 12:19] VITALS: BP_SYST 137; PULSE 73; RESP 18; TEMP 97.3; O2SAT 100
[2023-03-01] MEDS: METOPROLOL SUCCINATE 25 MG TAB.SR.24H (TOPROL XL) PO SCH (12:20)
[2023-03-01] MEDS: DOCUSATE SODIUM 100 MG CAPSULE PO PRN (12:21)
[2023-03-01] MEDS: GABAPENTIN 300 MG CAPSULE PO SCH (12:21)
[2023-03-01] MEDS: ATORVASTATIN 20 MG TABLET PO SCH (12:21)
[2023-03-01] MEDS: ASPIRIN 81 MG TAB.CHEW PO SCH (12:22)
[2023-03-01] MEDS: HEPARIN SODIUM,PORCINE 5,000 UNITS/ML VIAL SUBCUT SCH (12:45)
[2023-03-01 16:00] VITALS: BP_SYST 121; PULSE 82; RESP 16; TEMP 97.9; O2SAT 98
[2023-03-01 20:00] VITALS: BP_SYST 153; PULSE 80; RESP 18; TEMP 97.9; O2SAT 98
[2023-03-01] MEDS: cefTRIAXone 1 GM in D5W 50 ML IV SCH ×2 (21:00→22:38)
[2023-03-01] MEDS: OLANZapine 5 MG TAB.RAPDIS PO SCH (21:45)
[2023-03-02] VITALS (8 sets, daily range): BP systolic 102–153; PULSE 64–80; RESP 16–18; TEMP 97.8–98.5; O2SAT 91–99
[2023-03-02 07:34] LABS: BASOPHILS % (AUTO) 0.8 % (0.0-2.0); EOSINOPHILS # (AUTO) 0.1 K/uL (0.0-0.4); EOSINOPHILS % (AUTO) 1.4 % (0.0-4.0); HEMOGLOBIN 9.4 g/dL (12.0-16.0); MEAN CORPUSCULAR HEMOGLOBIN 28 pg (27-31); MEAN CORPUSCULAR HGB CONC 34 % (32-36); MEAN CORPUSCULAR VOLUME 84 fL (79.0-98.0); MONOCYTES # (AUTO) 0.4 K/uL (0.0-1.0); MONOCYTES % (AUTO) 7.9 % (1.7-9.3); NEUTROPHILS # (AUTO) 3.6 K/uL (1.8-7.7); NEUTROPHILS % (AUTO) 70.9 % (40.0-70.0); PLATELET COUNT (AUTO) 177 K/uL (130-430); RED BLOOD CELL COUNT(AUTO) 3.32 MIL/uL (4.2-6.2); RED CELL DISTRIBUTION WIDTH 15.3 % (9.0-15.0)
[2023-03-02 07:46] LABS: CALCIUM 10.6 mg/dL (8.4-11.0); CREATININE 1.09 mg/dL (0.55-1.30); POTASSIUM 4.3 mmol/L (3.5-5.1)
[2023-03-02] MEDS: CITALOPRAM HYDROBROMIDE 20 MG TABLET PO SCH (10:51)
[2023-03-03] VITALS: BP_SYST 139; PULSE 72; RESP 20; TEMP 98.3; O2SAT 94
[2023-03-03 06:38] LABS: BASOPHILS % (AUTO) 0.5 % (0.0-2.0); EOSINOPHILS # (AUTO) 0.1 K/uL (0.0-0.4); HEMATOCRIT 24.2 % (36-48); HEMOGLOBIN 8.2 g/dL (12.0-16.0); LYMPHOCYTES # (AUTO) 0.8 K/uL (1.0-5.5); LYMPHOCYTES % (AUTO) 23.2 % (20.5-51.5); MEAN CORPUSCULAR HEMOGLOBIN 28 pg (27-31); MEAN CORPUSCULAR HGB CONC 34 % (32-36); MEAN CORPUSCULAR VOLUME 83 fL (79.0-98.0); MONOCYTES # (AUTO) 0.3 K/uL (0.0-1.0); NEUTROPHILS # (AUTO) 2.3 K/uL (1.8-7.7); NEUTROPHILS % (AUTO) 65.3 % (40.0-70.0); PLATELET COUNT (AUTO) 153 K/uL (130-430); RED BLOOD CELL COUNT(AUTO) 2.92 MIL/uL (4.2-6.2); RED CELL DISTRIBUTION WIDTH 15.1 % (9.0-15.0); WHITE BLOOD COUNT (AUTO) 3.6 K/uL (4.8-10.8)
[2023-03-03 07:04] LABS: CALCIUM 9.7 mg/dL (8.4-11.0); CREATININE 0.98 mg/dL (0.55-1.30); POTASSIUM 3.7 mmol/L (3.5-5.1)
[2023-03-03 12:03] VITALS: BP_SYST 140; PULSE 74; RESP 19; TEMP 98; O2SAT 98
[2023-03-03 16:05] VITALS: BP_SYST 138; PULSE 73; RESP 20; TEMP 98.1; O2SAT 96
[2023-03-03 20:00] VITALS: BP_SYST 143; PULSE 72; RESP 18; TEMP 97.4; O2SAT 97
[2023-03-03] MEDS: OLANZapine 10 MG TAB.RAPDIS PO SCH (22:17)
[2023-03-04 05:11] VITALS: BP_SYST 143; PULSE 72; RESP 18; TEMP 97.4; O2SAT 97
[2023-03-04 07:01] LABS: BASOPHILS % (AUTO) 0.6 % (0.0-2.0); EOSINOPHILS # (AUTO) 0.1 K/uL (0.0-0.4); EOSINOPHILS % (AUTO) 2.5 % (0.0-4.0); HEMATOCRIT 24.2 % (36-48); HEMOGLOBIN 8.2 g/dL (12.0-16.0); LYMPHOCYTES % (AUTO) 30.8 % (20.5-51.5); MEAN CORPUSCULAR HEMOGLOBIN 28 pg (27-31); MEAN CORPUSCULAR HGB CONC 34 % (32-36); MEAN CORPUSCULAR VOLUME 84 fL (79.0-98.0); MONOCYTES # (AUTO) 0.2 K/uL (0.0-1.0); MONOCYTES % (AUTO) 7.5 % (1.7-9.3); NEUTROPHILS # (AUTO) 1.8 K/uL (1.8-7.7); NEUTROPHILS % (AUTO) 58.6 % (40.0-70.0); PLATELET COUNT (AUTO) 149 K/uL (130-430); RED CELL DISTRIBUTION WIDTH 14.9 % (9.0-15.0); WHITE BLOOD COUNT (AUTO) 3.1 K/uL (4.8-10.8)
[2023-03-04 07:22] LABS: CALCIUM 9.4 mg/dL (8.4-11.0); CREATININE 0.93 mg/dL (0.55-1.30); POTASSIUM 3.4 mmol/L (3.5-5.1)
[2023-03-04 08:00] VITALS: BP_SYST 135; PULSE 61; RESP 16; TEMP 97.4; O2SAT 100
[2023-03-04] MEDS ORDERED: ACETAMINOPHEN 500 MG TABLET PO PRN ×3 (08:00)
[2023-03-04 12:00] VITALS: BP_SYST 138; PULSE 65; RESP 17; TEMP 97.8; O2SAT 97
[2023-03-04] MEDS: NITROFURANTOIN MONOHYD/M-CRYST 100 MG CAPSULE (MacroBID) PO ONE (12:03)
[2023-03-04] MEDS ORDERED: NITR-85 PO (14:29)
[2023-03-04 15:17] VITALS: BP_SYST 138; PULSE 65; RESP 17; TEMP 97.8; O2SAT 99
[2023-03-04 16:00] VITALS: BP_SYST 136; PULSE 63; RESP 16; TEMP 97.6; O2SAT 99
[2023-03-04] MEDS ORDERED: NITROFURANTOIN MONOHYD/M-CRYST 100 MG CAPSULE (MacroBID) PO SCH (21:00)
== END 2023-03-04 16:55 | DRG 689 ==
LOC: SED 19:17 → SMU 03-01 01:14
PROVIDERS: ADMIT General Practice; ATTEND General Practice
DX: N39.0 Urinary tract infection, site not specified (principal); G93.41 Metabolic encephalopathy; I10 Essential (primary) hypertension; B96.20 Unspecified Escherichia coli [E. coli] as the cause of diseases classified elsewhere; K21.9 Gastro-esophageal reflux disease without esophagitis; E11.65 Type 2 diabetes mellitus with hyperglycemia; R53.1 Weakness; E78.5 Hyperlipidemia, unspecified; Z86.73 Personal history of transient ischemic attack (TIA), and cerebral infarction without residual deficits; Z79.899 Other long term (current) drug therapy; Z79.82 Long term (current) use of aspirin; Z88.1 Allergy status to other antibiotic agents; Z98.891 History of uterine scar from previous surgery
CPT/HCPCS: 36415; 71045; 80048; 81000; 81001; 81015; 82948; 82962; 83037; 83605; 83735; 84484; 85025; 87040; 87081; 87086; 96365; 97112-GP; 97163-GP; 99285; J0696; J1644; J7060